=== PATIENT | male | born 1955 | race Caucasian/White ===

== ENCOUNTER 2016-12-23 10:39 | Day surgery (SDC) | payer OTHER ==
[~2016-12-23] VITALS: Ht 172.7 cm; Wt 81.9 kg
[2016-12-23 11:15] VITALS: Ht 172.7 cm; Wt 81.9 kg
[2016-12-23] MEDS ORDERED: BENAZEPRIL PO (11:45)
[2016-12-23] MEDS ORDERED: METFORMIN PO (11:45)
[2016-12-23] MEDS ORDERED: SIMVASTATIN PO (11:45)
[2016-12-23] MEDS ORDERED: GLIPIZIDE PO (11:45)
[2016-12-23 11:47] VITALS: BP 148/76; PULSE 74; RESP 18
[2016-12-23] MEDS ORDERED: FENTAnyl 50 MCG/ML VIAL ONE (12:19)
[2016-12-23] MEDS ORDERED: MIDAZOLAM 1 MG/ML 2 ML INJ ONE ×2 (12:19→12:20)
[2016-12-23 12:35] VITALS: BP 127/75; PULSE 72; RESP 18
--- NOTE | 2017-01-21 12:52 | GILP ---
DATE OF PROCEDURE: 12/23/2016 SURGEON: Ramón Teixeira MD PROCEDURE PERFORMED: Colonoscopy. PREOPERATIVE DIAGNOSIS: Screening colonoscopy. POSTOPERATIVE DIAGNOSES: 1. Colonoscopy all the way to the cecum. 2. The patient had small rectal polyp and it was removed using the biopsy forceps. 3. Diverticulosis of the colon. 4. Internal hemorrhoids. INDICATION: The patient is a 61-year-old male patient who as scheduled for screening colonoscopy. The procedure and possible complications were well-explained to the patient, and the patient understood and consented to the procedure. DESCRIPTION OF PROCEDURE: The colonoscope was carefully introduced into the rectum and under direct vision it was advanced all the way to the cecum. Findings: The patient had a small rectal polyp and it was removed using the biopsy forceps. The patient was noted to have diverticulosis of the colon, and internal hemorrhoids. The patient tolerated the procedure very well and there was no complication from the procedure. At the end of the procedure the patient was awake, with stable vital signs and was discharged to the care of the family. IMPRESSION: Please postoperative diagnoses. PLAN: 1. Await histopathology report. 2. Next screening colonoscopy will be in 10 years. Dictated By: MD VICKY [email or web address] /Document#: [id number] CC: Ramón Teixeira MD;*[facility]*
== END 2016-12-23 14:42 | disposition home or self-care (01) ==
LOC: GIL 10:39
PROVIDERS: ATTEND Internal Medicine Gastroenterology
DX: Z12.11 Encounter for screening for malignant neoplasm of colon (principal); K62.1 Rectal polyp; K57.90 Diverticulosis of intestine, part unspecified, without perforation or abscess without bleeding; K64.8 Other hemorrhoids; I10 Essential (primary) hypertension; E11.9 Type 2 diabetes mellitus without complications
CPT/HCPCS: 45380; 82962; 88305; J2250; J3010